=== PATIENT | female | born 1990 | race African-American/Black ===

== ENCOUNTER 2019-07-15 02:12 | Emergency (ER) | payer SELFPAY ==
[~2019-07-15] VITALS: Ht 172.7 cm; Wt 145.4 kg
[2019-07-15 02:13] VITALS: BP 155/84
[2019-07-15] MEDS ORDERED: ERRI0.35 PO (02:21)
--- NOTE | 2019-07-15 05:18 | REP ---
Clinical: Right-sided chest pain and cough . Comparison: None . Technique: PA and lateral. Findings: The mediastinum and cardiac silhouette are normal. The lung arechiga are clear and without acute consolidation, effusion, or pneumothorax. The skeletal structures are intact and normal. Impression: 1. No acute cardiopulmonary process. Electronically Signed by Silvano Gore MD 07/15/2019 05:10 A
== END 2019-07-15 04:42 | disposition left against medical advice (07) ==
LOC: M ED 02:12
DX: Z53.21 Procedure and treatment not carried out due to patient leaving prior to being seen by health care provider (principal)